=== PATIENT | female | born 1970 | race Hispanic/Latino ===

== ENCOUNTER 2022-10-03 12:25 | Emergency (ER) | payer SELFPAY ==
--- OUTSIDE RECORDS SUMMARY | 2022-10-03 12:28 | XMS REPORT | Continuity of Care Document ---
:1970 Author Organization [facility] t Address [address] [place] [address] Dr. Mascorro [address] [place] [id number] Care Team Providers Name Role Phone JAZMIN ABEL Attending Clinician Unavailable Payers Payer Name Policy Type Policy Number Effective Date Expiration Date S justine [facility] [id number] 2015 00:00:00 Problems This patient has no known problems. Allergies, Adverse Reactions, Alerts Allergy Allergy Status Severity Reaction(s) Onset Inactive Treating Comm ents Source Name Type Date Date Clinician PENICILL Drug Active SOB 2008- [employer] INS Class 3-20 ity of 00:00: [address] Medications This patient has no known medications. Procedures This patient has no known procedures. Encounters Start End Encounter Admission Attending Care Care Encounter Source Date/Time Date/Time Type Type Clinicians Facility Department ID 2019-12-29 2019-12-29 Outpatient R COLTEN [facility] [id number] [facility] 10:00:00 10:00:00 JAZMIN [facility] Results Test Description Test Time Test Comments Results Result Comments Source CULTURE, URINE 2022-02-28 SPECIMEN NUMBER: [id number] CULTURE, URINE SPECIMEN NUMBER: [id number] SPECIMEN COMMENT: URINE SOURCE: URINE REPORT STATUS: FINAL FINAL REPORT: 02/28/2022 <10,000 CFU/ML MIXED UROGENITAL GEREMIAS UNLESS OTHERWISE INDICATED, ALL TESTING PERFORMED [facility] [address] [place] [id number] AUTOMOTIVE INSTRUCTOR: JESSENIA CAMPBELL M.D. CLIA NUMBER [id number] [place]. [id number] COMPREHENSIVE METABOLIC PANEL 2022-01-19 03:49:38 Test Item Value Reference Range Interpretation Comme nts GLUCOSE (test code = 2217) 94 MG/DL 70-99 BUN (test code = 220) 9 MG/DL 6-20 CREATININE (test code = 0.81 MG/DL 0.60-1.30 2213) eGFR (2020 CKD-EPI) (test 88 ML/MIN/1.73 >60 code = 07224) CALC BUN/CREAT (test code = 11 RATIO 6-28 2234) SODIUM (test code = 223) 142 MEQ/L 133-146 POTASSIUM (test code = 222) 5.1 MEQ/L 3.5-5.4 CHLORIDE (test code = 2214) 102 MEQ/L 95-107 CARBON DIOXIDE (test code = 29 MEQ/L 19-31 2205) CALCIUM (test code = 2208) 10.1 MG/DL 8.5-10.5 PROTEIN, TOTAL (test code = 6.8 G/DL 6.1-8.3 2228) ALBUMIN (test code = 2200) 4.6 G/DL 3.5-5.2 CALC GLOBULIN (test code = 2.2 G/DL 1.9-3.7 2239) CALC A/G RATIO (test code = 2.1 RATIO 1.0-2.6 2233) BILIRUBIN, TOTAL (test code 0.3 MG/DL See_Comment [Automated message] The = 2206) system which ge nerated this result transmit melissa reference range: <=1.2. T he reference range was not u sed to interpret this result as normal/abnormal . ALKALINE PHOSPHATASE (test 57 U/L 40-128 code = 2204) AST (test code = 221) 20 U/L 9-40 ALT (test code = 2219) 27 U/L 5-40 LIPID [id number] 03:49:38 Test Item Value Reference Range Interpretation Comments CHOLESTEROL (test 285 MG/DL <200 H code = 2210) TRIGLYCERIDES (test 130 MG/DL <150 code = 2232) HDL CHOLESTEROL (test 59 MG/DL >39 code = 2220) CALC LDL CHOL (test 198 MG/DL <100 H NOTE: C ALCULATED LDL code = 2237) IS BASED ON [place] METHOD WHICHINCLUDES ADJUSTABLE TRIGLYCERIDE:VL DL CHOLESTEROL RAT IO.THIS FACTOR VARIES B Y MEASURED TRIGLY CERIDE AND NON-HDLCHOL ESTEROL CONCENTRATIONS WITH INCREASED CALCU LATED LDL SEENIN HIGH ER TRIGLYCERIDE OR LOWER NON-HDL SPECIME NS. FOR MOREINFORMATION , SEE CLIENT ANNOUNCE MENT AT [email or web address] RISK RATIO LDL/HDL 3.36 RATIO <3.22 H UNLESS O THERWISE (test code = 2238) INDICATED , ALL TESTING PERFORMED [facility]. [address] [place] [address] [facility] DIRECTOR: JESSENIA CAMPBELL M.D. CLIA NUMBER [id number] CAP ACCREDITATION N O. [id number]
[2022-10-03] MEDS ORDERED: METOCLOPRAMIDE 10 MG/2mL INJ ONE (13:21)
[2022-10-03] MEDS ORDERED: NA CHLORIDE 0.9% 1,000 ML ONE (13:21)
[2022-10-03] MEDS ORDERED: DIPHENHYDRAMINE 50 MG/ML VIAL ONE (13:21)
[2022-10-03] MEDS ORDERED: KETOROLAC 30 MG/ML INJ ONE (13:21)
[2022-10-03] MEDS ORDERED: dexAMETHasone 10 MG/ML VIAL ONE (14:49)
[2022-10-03] MEDS ORDERED: MAGNESIUM SULFATE 1 gm IVPB 1 GM/100 ML BAG IV ONE (14:49)
--- NOTE | 2022-10-03 15:10 | RAD REPORT ---
EXAM DESCRIPTION: CT - Head Brain Wo Cont - 10/03/2022 2:56 pm CLINICAL HISTORY: headache COMPARISON: HEAD BRAIN W O CONTRAST dated 05/04/2014 TECHNIQUE: Axial 5 mm thick images of the head were obtained without IV contrast. All CT scans are performed using dose optimization technique as appropriate and may include automated exposure control or mA/KV adjustment according to patient size. FINDINGS: No intracranial hemorrhage, mass, edema or shift of mid-line structures. No acute infarcti on changes seen. No abnormal extra-axial fluid collections. Ventricles are normal. No atrophy or consultant education leda ischemic changes identifiable. Mastoid air cells and visualized portions of the paranasal sinuses are clear. No acute bony findings. No globe or orbital content abnormality seen. No abnormality in the optic foramina sella or cavernous sinus regions. IMPRESSION: Negative non-contrast CT head examination.
--- NOTE | 2022-10-03 15:25 | EDPHYS ---
Physician Documentation [facility] Name: Yenny Townsend Age: 52 yrs Sex: Female : 1970 Arrival Date: 10/03/2022 Time: 12:28 Bed 10 Private MD: ED Physician Shane Browning HPI: 10/03 13:12 This 52 yrs old Female presents to ER via Ambulatory with complaints of sb4 Headache, Eye Pain. 13:12 The patient complains of pain to the forehead, right eye, left eye, right religion, left sb4 religion and face. The patient describes the headache as aching, constant. Onset: The symptoms/episode began/occurred last night. Associated signs and symptoms: Pertinent positives: vomiting, weakness, Pertinent negatives: dizziness, fever, Photophobia vision changes. Severity of symptoms: At its worst the pain was moderate. Headache History: The patient has had previous headaches and this one is similar to previous episodes. The symptoms are alleviated by nothing. the symptoms are aggravated by nothing. The patient has experienced similar episodes in the past, a few times. The patient has been recently seen by a physician: yesterday. Patient reports that her BP has been high, \R\180 systolic. She states that she went to see her PCP yesterday who increased her losaratan. Reports that she had a headache yesterday and it continued into today. States her BP was \R\150 systolic at home. Pain has not been relieved with tylenol or ibuprofen. She vomited once.. 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 - Social history:: Patient/guardian denies using alcohol, tobacco products, Smoking status: Patient denies any tobacco usage or history of. Patient/guardian denies using alcohol. ROS: 13:26 Constitutional: Negative for fever, chills, and weight loss, Eyes: Negative for injury, sb4 pain, redness, and discharge, ENT: Negative for injury, pain, and discharge, Neck: Negative for injury, pain, and swelling, Cardiovascular: Negative for chest pain, palpitations, and edema, Respiratory: Negative for shortness of breath, cough, wheezing, and pleuritic chest pain. 13:26 Abdomen/GI: Positive for nausea, vomiting. 13:26 Neuro: Positive for headache, Negative for altered mental status, dizziness, gait disturbance, numbness, syncope. 13:26 All other systems are negative. Exam: 13:26 Constitutional: This is a well developed, well nourished patient who is awake, alert, sb4 and in no acute distress. Head/Face: Normocephalic, atraumatic. Eyes: Pupils equal round and reactive to light, extra-ocular motions intact.Periorbital areas with no swelling, redness, or edema. Cardiovascular: Regular rate and rhythm with a normal S1 and S2. Respiratory: Lungs have equal breath sounds bilaterally, clear to auscultation and percussion. No rales, rhonchi or wheezes noted. No increased work of breathing, no retractions or nasal flaring. Abdomen/GI: Soft, non-tender, no distension. Skin: Warm, dry with normal turgor. Normal color with no rashes, no lesions, and no evidence of cellulitis. Vital Signs: 13:01 BP 144 / 94; Pulse 105; Resp 16; Temp 98.0; Pulse Ox 100% on R/A; iw 13:44 BP 139 / 86; Pulse 99; Resp 18; Pulse Ox 100% on R/A; ld1 15:24 BP 141 / 83; Pulse 94; Resp 18; Pulse Ox 100% on R/A; Pain 5/10; ld1 MDM: 13:17 Patient medically screened. rn 15:24 Data reviewed: vital signs, nurses notes, lab test result(s), radiologic studies, and sb4 as a result, I will discharge patient. 10/03 14:38 Order name: Head Brain Wo Cont CT; Complete Time: 15:10 sb4 10/03 13:12 Order name: IV Start; Complete Time: 13:44 sb4 Administered Medications: 13:44 Drug: Benadryl (diphenhydrAMINE) 12.5 mg Route: IVP; Site: right antecubital; ld1 17:48 Follow up: Response: No adverse reaction ld1 13:44 Drug: Reglan (metoCLOPramide) 10 mg Route: IVP; Site: right antecubital; ld1 17:48 Follow up: Response: No adverse reaction ld1 13:44 Drug: Ketorolac 15 mg Route: IVP; Site: right antecubital; ld1 17:48 Follow up: Response: No adverse reaction ld1 13:44 Drug: NS 0.9% 1000 ml Route: IV; Rate: 1 bolus; Site: right antecubital; ld1 17:48 Follow up: Response: No adverse reaction; IV Status: Completed infusion; IV Intake: ld1 1000ml 14:52 Drug: Decadron - Dexamethasone 10 mg Route: IVP; Site: right antecubital; ld1 17:48 Follow up: Response: No adverse reaction ld1 15:04 Drug: Magnesium Sulfate 1 grams Route: IVPB; Infused Over: 1 hrs; Site: right ld1 antecubital; 17:48 Follow up: Response: No adverse reaction; IV Status: Completed infusion; IV Intake: ld1 100ml Disposition: 15:24 Chart complete. sb4 18:45 Co-signature as Attending Physician, Shane Browning MD. rn Disposition Summary: 10/03/22 15:25 Discharge Ordered Location: Home sb4 Problem: new sb4 Symptoms: have improved sb4 Condition: Stable sb4 Diagnosis - Tension-type headache sb4 Followup: sb4 - With: Private Physician - When: 2 - 3 days - Reason: Recheck today's complaints, Continuance of care, Re-evaluation by your physician Discharge Instructions: - Discharge Summary Sheet sb4 Forms: - Medication Reconciliation Form sb4 - Thank You Letter sb4 - Antibiotic Education sb4 - Prescription Opioid Use sb4 Prescriptions: - ketorolac 10 mg Oral tablet - take 1 tablet by ORAL route every 6 hours As needed not to exceed 40 mg in sb4 24hrs; 12 tablet; Refills: 0, Product Selection Permitted Signatures: Dispatcher [employer] Valeria Orozco RN RN iw Nieto, Roman, MD MD rn Dibbern, Lauren, RN RN ld1 Marcia Garzon PA-C PA-C sb4 Corrections: (The following items were deleted from the chart) 13:04 13:04 Allergies: Amoxapine; [facility] 13: 13:26 Constitutional: Positive for sb4 sb4 13: 13:26 Constitutional: Positive for sb4 sb4 : 13:26 Constitutional: sb4 sb4
--- NOTE | 2022-10-03 15:25 | ER ---
Nurse's Notes [facility] Name: Yenny Townsend Age: 52 yrs Sex: Female : 1970 Arrival Date: 10/03/2022 Time: 12:28 Bed 10 Private MD: Diagnosis: Tension-type headache Presentation: 10/03 13:01 Chief complaint: Patient states: she saw her PCP yesterday for headache, her BP was iw high, they increased her losartan to 100 mg from 25 and added clonidine 0.1 daily, she still has a headache and pain behind her eyes. Coronavirus screen: Client presents with at least one sign or symptom that may indicate coronavirus-19. Ebola Screen: Patient negative for fever greater than or equal to 101.5 degrees Fahrenheit, and additional compatible Ebola Virus Disease symptoms Patient denies exposure to infectious person. Patient denies travel to an Ebola-affected area in the 21 days before illness onset. No symptoms or risks identified at this time. Initial Sepsis Screen: Does the patient meet any 2 criteria? No. Patient's initial sepsis screen is negative. Does the patient have a suspected source of infection? No. Patient's initial sepsis screen is negative. Risk Assessment: Do you want to hurt yourself or someone else? Patient reports no desire to harm self or others. Onset of symptoms was October 02, 2022. 13:01 Method Of Arrival: Ambulatory iw 13:01 Acuity: SARBJTI 3 iw Triage Assessment: 15:00 Headache History: Denies prior headaches. General: Appears in no apparent distress. ld1 comfortable, Behavior is calm, cooperative, appropriate for age. Pain: Complains of pain in face. Pain: Pain does not radiate. Pain currently is 8 out of 10 on a pain scale. Quality of pain is described as throbbing. EENT: No signs and/or symptoms were reported regarding the EENT system. Neuro: Level of Consciousness is awake, alert, obeys commands, Oriented to person, place, time, situation. Cardiovascular: Capillary refill < 3 seconds Patient's skin is warm and dry. Respiratory: Airway is patent Respiratory effort is even, unlabored. 15:00 GI: Abdomen is round non-distended. ld1 16:13 Pain: Also complains of no other associated symptoms. 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 - Social history:: Patient/guardian denies using alcohol, tobacco products, Smoking status: Patient denies any tobacco usage or history of. Patient/guardian denies using alcohol. Screenin:44 Abuse screen: Denies threats or abuse. Denies injuries from another. Nutritional ld1 screening: No deficits noted. Tuberculosis screening: No symptoms or risk factors identified. Fall Risk None identified. Assessment: 13:44 Reassessment: See triage assessment. ld1 15:24 Reassessment: Patient appears in no apparent distress at this time. Patient and/or ld1 family updated on plan of care and expected duration. Pain level reassessed. Patient is alert, oriented x 3, equal unlabored respirations, skin warm/dry/pink. Vital Signs: 13:01 BP 144 / 94; Pulse 105; Resp 16; Temp 98.0; Pulse Ox 100% on R/A; iw 13:44 BP 139 / 86; Pulse 99; Resp 18; Pulse Ox 100% on R/A; ld1 15:24 BP 141 / 83; Pulse 94; Resp 18; Pulse Ox 100% on R/A; Pain 5/10; ld1 ED Course: 12:28 Patient arrived in ED. mr 13:02 Marcia Garzon PA-C is PHCP. sb4 13:02 Shane Browning MD is Attending Physician. sb4 13:04 Triage completed. iw 13:04 Arm band placed on. iw 13:17 Yara Moody, RN is Primary Nurse. ld1 13:44 Patient has correct armband on for positive identification. Placed in gown. Bed in low ld1 position. Call light in reach. Side rails up X2. Pulse ox on. NIBP on. Door closed. Noise minimized. 13:44 No provider procedures requiring assistance completed. Inserted saline lock: 20 gauge ld1 in right antecubital area, using aseptic technique. Blood collected. 14:56 Head Brain Wo Cont CT In Process Unspecified. EDMS 16:13 IV discontinued, intact, bleeding controlled, No redness/swelling at site. ld1 Administered Medications: 13:44 Drug: Benadryl (diphenhydrAMINE) 12.5 mg Route: IVP; Site: right antecubital; ld1 17:48 Follow up: Response: No adverse reaction ld1 13:44 Drug: Reglan (metoCLOPramide) 10 mg Route: IVP; Site: right antecubital; ld1 17:48 Follow up: Response: No adverse reaction ld1 13:44 Drug: Ketorolac 15 mg Route: IVP; Site: right antecubital; ld1 17:48 Follow up: Response: No adverse reaction ld1 13:44 Drug: NS 0.9% 1000 ml Route: IV; Rate: 1 bolus; Site: right antecubital; ld1 17:48 Follow up: Response: No adverse reaction; IV Status: Completed infusion; IV Intake: ld1 1000ml 14:52 Drug: Decadron - Dexamethasone 10 mg Route: IVP; Site: right antecubital; ld1 17:48 Follow up: Response: No adverse reaction ld1 15:04 Drug: Magnesium Sulfate 1 grams Route: IVPB; Infused Over: 1 hrs; Site: right ld1 antecubital; 17:48 Follow up: Response: No adverse reaction; IV Status: Completed infusion; IV Intake: ld1 100ml Medication: 13:44 VIS not applicable for this client. ld1 Intake: 17:48 IV: 100ml; Total: 100ml. ld1 17:48 IV: 1000ml; Total: 1100ml. ld1 Outcome: 15:25 Discharge ordered by MD. sb4 16:13 Discharged to home ambulatory, with family. ld1 16:13 Condition: stable 16:13 Discharge instructions given to patient, family, Instructed on discharge instructions, follow up and referral plans. medication usage, Demonstrated understanding of instructions, follow-up care, medications, Prescriptions given X 1. 16:13 Patient left the ED. ld1 Signatures: Dispatcher [employer] Carmen Zepeda Irene, RN RN iw Yara Moody RN RN ld1 Marcia Garzon PA-C PA-C sb4 Corrections: (The following items were deleted from the chart) 13:04 13:04 Allergies: Amoxapine; iw iw
[2022-10-03 20:05] VITALS: TEMP 98; O2SAT 100
[2022-10-03 20:08] VITALS: BP 141/83
== END 2022-10-03 16:13 | disposition home or self-care (01) ==
LOC: ER 12:25
DX: G44.209 Tension-type headache, unspecified, not intractable (principal); I10 Essential (primary) hypertension; Z88.1 Allergy status to other antibiotic agents; Z88.5 Allergy status to narcotic agent
CPT/HCPCS: 70450; 96361; 96365; 96366; 96375; 99284; J1100; J1200; J2765; J3475; J7030

== ENCOUNTER 2024-10-28 17:17 | Emergency (ER) | payer BC ==
--- OUTSIDE RECORDS SUMMARY | 2024-10-28 17:23 | XMS REPORT | Clinical Summary ---
Author Name Unknown Organization [facility] Address [address] [place] [address] Care Team Providers Care Plastics Design Engineer Name Role Phone Unavailable Primary Care Provider Unavailabl e Encounters Date Type Department Care Team Description 07/14/2024 8:50 AM CDT Ancillary Procedure Mobile Mammography [address] [place] [address] Jeovanny Mack MD Screening mammography 06/17/2024 Documentation Breast Imaging [address] [facility], 5th [place] [address] Chung Bear RT 05/24/2024 Documentation Breast Imaging [address] [facility], 5th [place] [address] Summer Love, [facility] after 10/29/2023 Surgical History Surgery Date Site/Laterality Comments TUBAL LIGATION 10/28/2008 - 10/27/2009 Family History Medical History Relation Name Comments Liver cancer Mother Pancreatic cancer Mother Relation Name Status Comments Mother Social History Tobacco Use Types Packs/Day Years Used Date Smoking Tobacco: Never Assessed Comments No Sex and Gender Information Value Date Recorded Sex Assigned at Not on file Legal Sex Female 11:23 AM CDT Gender Identity Not on file Sexual Orientation Not on file Obstetrics History Para Term AB IAB SAB Ectopic Multiple Livin g Live Births 4 4 4 Date Outcome GA Total Labor Labor/2nd/3rd Weight Sex Type Anes PTL Haydee A1 A5 Name Clin Term Term Term Term Plan of Treatment Health Maintenance Due Date Last Done Comments COVID-19 Vaccine (2023-2 5 season) 2024 01/04/2022, 06/29/2021, 05/31/2021 Influenza Vaccine (#1) 2024 8, 12/17/2017, 2009 Pneumococcal Vaccine: Pediatrics (0 to 5 Years) and At-Risk Patients (6 to 64 Years) Aged Out No longer eligible b ased on patient's age to complete this topic Procedures Procedure Name Priority Date/Time Associated Diagnosis Comments MOBILE MAMMO DIGITAL SCREENING BILATERAL W JOHN Routine 07/14/2024 9:20 AM CDT Screening mammography after 10/29/2023 Results * Mobile Mammography Screening Bilateral with John (07/14/2024 9:20 AM CDT) Anatomical Region Laterality Modality Breast Bilateral Mammography Impressions 07/14/2024 9:52 AM CDT Bilateral There is no mammographic evidence of malignancy. Overall BI-RAD Category: 1 - Negative Recommend return to annual screening mammography, due on 07/13/2025. Narrative 07/14/2024 9:52 AM CDT CLINICAL INDICATION: Patient is a 54 y.o. female and is seen for screening. Mobile Mammography Screening Bilateral with John Computer-aided detection was utilized by the radiologist in the interpretation of this examination. Tomosynthesis was performed in CC and MLO projections. COMPARISON: No comparisons were made when reading this study. FINDINGS: The breasts are heterogeneously dense, which may obscure small masses. Bilateral No dominant mass, architectural distortion, or suspicious calcifications are identified. us Renata Bhat [facility] ORDERABLES Fin al Result after 10/29/2023
[2024-10-28] MEDS ORDERED: METOCLOPRAMIDE 10 MG/2mL INJ ONE (17:45)
[2024-10-28] MEDS ORDERED: DIPHENHYDRAMINE 50 MG/ML VIAL ONE (17:45)
[2024-10-28] MEDS ORDERED: dexAMETHasone 10 MG/ML VIAL ONE (17:45)
[2024-10-28] MEDS ORDERED: KETOROLAC 30 MG/ML INJ ONE (17:45)
[2024-10-28] MEDS ORDERED: NA CHLORIDE 0.9% 1,000 ML ONE (17:46)
[2024-10-28 18:08] LABS: Absolute Eosinophils 0.2 K/uL (0-0.5); Absolute Lymphocytes (CBC) 1.3 K/uL (0.7-4.9); Absolute Monocytes 0.8 K/uL (0.1-1.3); Absolute Neutrophil 5.3 K/uL (1.8-8.0); Basophils % 0.5 % (0-1.3); Eosinophils % 2.8 % (0-4.4); Hematocrit 41.5 % (36.0-45.0); Hemoglobin 14.2 g/dL (12.0-15.0); Lymphocytes % 16.7 % (15.3-44.8); MCH 29.8 pg (27.0-35.0); MCHC 34.2 g/dL (32.0-36.0); MCV 87.1 fL (80-100); MPV 10.1 fL (7.6-11.3); Monocytes % 10.1 % (3.3-12.3); Neutrophils % 69.9 % (41.7-73.7); Nucleated Red Blood Cells % 0.1 % (0-0); Platelets 179 thou/uL (152-406); RBC Red Blood Cell Count 4.76 M/uL (3.86-4.86); Red Cell Distribution Width 12.9 % (12.1-15.2)
[2024-10-28 18:20] LABS: Anion Gap 9.9 mEq/L (5.0-15.0); Potassium 3.9 mEq/L (3.5-5.1)
[2024-10-28 18:28] LABS: SARS-CoV-2 Antigen CONTROL BLUE LINE VIS/BG OK; SARS-CoV-2 Antigen Rapid Res Negative (Negative)
--- NOTE | 2024-10-28 19:17 | ER ---
Nurse's Notes [facility] Name: Yenny Townsend Age: 54 yrs Sex: Female : 1970 Arrival Date: 10/28/2024 Time: 17:17 Bed 20 Private MD: Diagnosis: Headache Presentation: 10/28 17:30 Chief complaint: Patient states: Headache, cough, and nausea that started yesterday rs5 morning. Coronavirus screen: At this time, the client does not indicate any symptoms associated with coronavirus-19. Ebola Screen: No symptoms or risks identified at this time. Initial Sepsis Screen: Does the patient meet any 2 criteria? No. Patient's initial sepsis screen is negative. Does the patient have a suspected source of infection? No. Patient's initial sepsis screen is negative. Risk Assessment: Do you want to hurt yourself or someone else? Patient reports no desire to harm self or others. Onset of symptoms was November 27, 2023. 17:30 Method Of Arrival: Ambulatory rs5 17:30 Acuity: SARBJIT 3 rs5 Triage Assessment: 17:45 Headache History: The patient has had previous headaches and this one is similar to bp previous episodes. General: Appears in no apparent distress. ill, Behavior is calm, cooperative, appropriate for age. Pain: Complains of pain in head Pain currently is 4 out of 10 on a pain scale. Pain began 1 day ago. Also complains of no other associated symptoms. EENT: No deficits noted. Neuro: Level of Consciousness is awake, alert, obeys commands, Oriented to Appropriate for age. Cardiovascular: No deficits noted. Respiratory: No deficits noted. GI: Reports nausea. : No signs and/or symptoms were reported regarding the genitourinary system. Derm: No deficits noted. Musculoskeletal: No deficits noted. 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 - Infectious Disease History:: Denies. - Social history:: Smoking status: Patient denies any tobacco usage or history of. Screenin:45 [facility] ED Fall Risk Assessment (Adult) History of falling in the last 3 months, bp including since admission No falls in past 3 months (0 pts) Confusion or Disorientation No (0 pts) Intoxicated or Sedated No (0 pts) Impaired Gait No (0 pts) Mobility Assist Device Used No (0 pt) Altered Elimination No (0 pt) Score/Fall Risk Level 0 - 2 = Low Risk Oriented to surroundings. Abuse screen: Denies threats or abuse. Denies injuries from another. Nutritional screening: No deficits noted. Tuberculosis screening: No symptoms or risk factors identified. Assessment: 17:45 General: Appears in no apparent distress. uncomfortable, Behavior is calm, cooperative, bp appropriate for age. 19:13 General: Appears in no apparent distress. comfortable, Behavior is calm, cooperative, rg5 appropriate for age. Pain: Denies pain. Neuro: Level of Consciousness is awake, alert, obeys commands. Cardiovascular: Patient's skin is warm and dry. Respiratory: Airway is patent Trachea midline Respiratory effort is even, unlabored. GI: Abdomen is round non-distended. : No signs and/or symptoms were reported regarding the genitourinary system. EENT: No deficits noted. Derm: Skin is intact, Skin is dry, Skin is normal. Musculoskeletal: Circulation, motion, and sensation intact. Range of motion: intact in all extremities. Vital Signs: 17:32 BP 110 / 74; Pulse 91; Resp 18; Temp 98.4(O); Pulse Ox 96% on R/A; bp 19:11 BP 113 / 80; Pulse 89; Resp 18; Temp 98; Pulse Ox 97% on R/A; Pain 2/10; rg5 19:11 Pain Scale: Adult rg5 Cruz Coma Score: 19:15 Eye Response: spontaneous(4). Motor Response: obeys commands(6). Verbal Response: kb oriented(5). Total: 15. ED Course: 17:23 Patient arrived in ED. im 17:24 Sandra Nino FNP-C [facility]. kb 17:24 Gordy Matos MD is Attending Physician. kb 17:27 Joni Hoskins, PATRICK is Primary Nurse. bp 17:31 Triage completed. rs5 17:45 Patient has correct armband on for positive identification. bp 17:45 Initial lab(s) drawn, by me, sent to lab. COVID swab sent to lab. Flu and/or RSV swab bp sent to lab. Inserted saline lock: 22 gauge in right antecubital area, using aseptic technique. Blood collected. Flushed with 10 mL NS. 19:12 Arm band placed on right wrist. rg5 19:13 Door closed. Noise minimized. Verbal reassurance given. rg5 19:13 No provider procedures requiring assistance completed. rg5 19:54 Provided Education on: POST ER CARE DONE. rg5 19:54 IV discontinued. rg5 Administered Medications: 18:00 Drug: NS 0.9% IV 1000 ml IV at 1000 ml once; to be given as a bolus over 60 minutes bp Route: IV; Rate: 1000 ml; Site: right antecubital; 19:09 Follow up: IV Status: Completed infusion; IV Intake: 1000ml rg5 18:00 Drug: Decadron - Dexamethasone IVP 10 mg IVP once Route: IVP; Site: right antecubital; bp 19:08 Follow up: Response: No adverse reaction rg5 18:00 Drug: Ketorolac IVP 15 mg IVP once Route: IVP; Site: right antecubital; bp 19:08 Follow up: Response: No adverse reaction rg5 18:00 Drug: metoCLOPramide IVP 10 mg IVP once; over 1 to 2 minutes Route: IVP; Site: right bp antecubital; 19:08 Follow up: Response: No adverse reaction rg5 18:00 Drug: diphenhydrAMINE IVP 12.5 mg IVP once Route: IVP; Site: right antecubital; bp 19:08 Follow up: Response: No adverse reaction rg5 Medication: 19:13 VIS not applicable for this client. rg5 Intake: 19:09 IV: 1000ml; Total: 1000ml. rg5 Outcome: 19:17 Discharge ordered by . tari 19:55 Discharged to home ambulatory, rg5 19:55 Condition: stable 19:55 Discharge instructions given to patient, Instructed on discharge instructions, follow up and referral plans. Demonstrated understanding of instructions, 19:56 Patient left the ED. rg5 Signatures: Sandra Nino, CLEMENTE-C CASTING TRUCKER-Joni Meadows, RN RN Bud Heatony, RN RN rs5 Bia Holbrook Rommel RN RN rg5 Corrections: (The following items were deleted from the chart) 17:45 17:32 Temp 98.4F Oral; rs5 bp
--- NOTE | 2024-10-28 19:17 | EDPHYS ---
Physician Documentation [facility] Name: Yenny Townsend Age: 54 yrs Sex: Female : 1970 Arrival Date: 10/28/2024 Time: 17:17 Bed 20 Private MD: ED Physician Gordy Matos HPI: 10/28 18:40 This 54 yrs old Female presents to ER via Ambulatory with complaints of kb Headache, Nausea/Vomiting. 18:40 Pt is a 54 year old female who presents for headache, nausea, vomiting and cough that kb started yesterday. Denies fever, abd pain, diarrhea. No aggravating or alleviating factors. . 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 - Infectious Disease History:: Denies. - Social history:: Smoking status: Patient denies any tobacco usage or history of. ROS: 18:40 Constitutional: As per HPI kb Exam: 18:40 Constitutional: This is a well developed, well nourished patient who is awake, alert, kb and in no acute distress. Head/Face: Normocephalic, atraumatic. Eyes: Pupils equal round and reactive to light, extra-ocular motions intact. Lids and lashes normal. Conjunctiva and sclera are non-icteric and not injected. Cornea within normal limits. Periorbital areas with no swelling, redness, or edema. ENT: Moist Mucous membranes Cardiovascular: Regular rate Respiratory: Respirations even and unlabored. No increased work of breathing. Talking in full sentences Abdomen/GI: Soft, non-tender. No distention Skin: Warm, dry with normal turgor. Normal color. MS/ Extremity: Pulses equal, no cyanosis. Neurovascular intact. Full, normal range of motion. Neuro: Awake and alert, GCS 15, oriented to person, place, time, and situation. Vital Signs: 17:32 BP 110 / 74; Pulse 91; Resp 18; Temp 98.4(O); Pulse Ox 96% on R/A; bp 19:11 BP 113 / 80; Pulse 89; Resp 18; Temp 98; Pulse Ox 97% on R/A; Pain 2/10; rg5 19:11 Pain Scale: Adult rg5 Cruz Coma Score: 19:15 Eye Response: spontaneous(4). Motor Response: obeys commands(6). Verbal Response: kb oriented(5). Total: 15. MDM: 17:24 Medical Screening Exam initiated kb 19:15 Differential diagnosis: migraine, sinusitis, tension headache. Data reviewed: vital kb signs, nurses notes. Test considered but Not performed: CT: ct head considered but pt has had similar headaches in the past. Historians other than the Patient: Spouse/Significant Other: spouse. Counseling: I had a detailed discussion with the patient and/or guardian regarding the historical points, exam findings, and any diagnostic results supporting the discharge/admit diagnosis, lab results, the need for outpatient follow up, a family practitioner, to return to the emergency department if symptoms worsen or persist or if there are any questions or concerns that arise at home. Response to treatment: the patient's symptoms have resolved after treatment. 10/28 17:29 Order name: CBC with Diff; Complete Time: 18:11 kb 10/28 17:29 Order name: Basic Metabolic Panel; Complete Time: 18:20 kb 10/28 17:29 Order name: Flu; Complete Time: 18:40 kb 10/28 17:29 Order name: SARS-COV-2 Antigen Rapid; Complete Time: 18:32 kb 10/28 17:29 Order name: IV Start; Complete Time: 18:01 kb 10/28 18:41 Order name: PO challenge; Complete Time: 18:54 kb Administered Medications: 18:00 Drug: NS 0.9% IV 1000 ml IV at 1000 ml once; to be given as a bolus over 60 minutes bp Route: IV; Rate: 1000 ml; Site: right antecubital; 19:09 Follow up: IV Status: Completed infusion; IV Intake: 1000ml rg5 18:00 Drug: Decadron - Dexamethasone IVP 10 mg IVP once Route: IVP; Site: right antecubital; bp 19:08 Follow up: Response: No adverse reaction rg5 18:00 Drug: Ketorolac IVP 15 mg IVP once Route: IVP; Site: right antecubital; bp 19:08 Follow up: Response: No adverse reaction rg5 18:00 Drug: metoCLOPramide IVP 10 mg IVP once; over 1 to 2 minutes Route: IVP; Site: right bp antecubital; 19:08 Follow up: Response: No adverse reaction rg5 18:00 Drug: diphenhydrAMINE IVP 12.5 mg IVP once Route: IVP; Site: right antecubital; bp 19:08 Follow up: Response: No adverse reaction rg5 Disposition Summary: 10/28/24 19:17 Discharge Ordered Notes: Location: Home kb Condition: Stable kb Diagnosis - Headache kb Followup: kb - With: Emergency Department - When: As needed - Reason: Worsening of condition Followup: kb - With: Private Physician - When: 2 - 3 days - Reason: Recheck today's complaints, Continuance of care, Re-evaluation by your physician Discharge Instructions: - Discharge Summary Sheet kb - General Headache Without Cause, [id number] kb Forms: - Medication Reconciliation Form kb - Antibiotic Education kb - Prescription Opioid Use kb - Patient Portal Instructions kb - Leadership Thank You Letter kb Addendum: 11/02/2024 07:45 I was immediately available for consultation during this patient's visit. I did not e c2 personally see the patient or discuss the patient with the NAVEEN. . Signatures: Dispatcher [employer] EDMS Sandra Nino, CLEMENTE-C MANAGEMENT LIAISON-Joni Meadows RN RN bp Nick Gunderson RN RN rs5 Gordy Matos MD MD ec2 Abdiel Moore RN rg5 Corrections: (The following items were deleted from the chart) 10/28 17:29 17:29 CBC+H.LAB.BRZ ordered. EDMS EDMS 17:29 17:29 BASIC METABOLIC PANEL+C.LAB.BRZ ordered. EDMS EDMS 17:29 17:29 Influenza Screen (A \T\ B)+BA.LAB.BRZ ordered. EDMS EDMS 17:29 17:29 SARS-COV-2 Antigen Rapid+I.LAB.BRZ ordered. EDMS EDMS
[2024-10-28 21:07] VITALS: BP 110/74; TEMP 98.4; O2SAT 96
== END 2024-10-28 19:56 | disposition home or self-care (01) ==
LOC: ER 17:17
DX: R51.9 Headache, unspecified (principal); R11.2 Nausea with vomiting, unspecified; Z11.52 Encounter for screening for COVID-19
CPT/HCPCS: 96361; 85025; 80048; 36415; 87804 ×2; 96375; 96374; 99284; 87811; J2765; J1200; J1100; J7030